=== PATIENT | female | born 1965 | race Caucasian/White ===

== ENCOUNTER 2020-01-22 12:47 | Emergency (ER) | payer OTHER, SELFPAY ==
[2020-01-22 13:30] VITALS: BP 109/63; PULSE 67; RESP 16; TEMP 36.6; O2SAT 100; BMI 22.1
--- NOTE | 2020-01-22 13:33 | DI.RAD.S_ITS ---
PROCEDURE: XR HAND LT MIN 3V INDICATIONS: hand injury TECHNIQUE: 3 views of the hand(s) acquired. COMPARISON: None. FINDINGS: Bones: No displaced fractures or dislocations. Carpal bones are normally aligned. No suspicious bony lesions. Soft tissues: No suspicious soft tissue calcifications. IMPRESSION: No acute fractures of the left hand. Dictated by: Scot Amador M.D. on 01/22/2020 at 13:04 Approved by: Scot Amador M.D. on 01/22/2020 at 13:05
--- NOTE | 2020-01-22 15:33 | ED_ITS ---
HPI - Extremity Injury (Upper) <LINDA Castro - Last Filed: 01/22/20 15:37> General Chief Complaint: Extremity Injury, Upper Stated Complaint: left hand injury x1 day Time Seen by Provider: 01/22/20 14:52 Source: patient Mode of arrival: Ambulatory Limitations: no limitations History of Present Illness HPI narrative: The patient is a 54-year-old female nonsmoker denies pertinent me dical history presents with a chief complaint of left hand pain. She states she fell on her hand yesterday. She has tried to avoid a washer machine. She is left-hand dominant. Is not taking anything for pain. Complains of bruising in the area. She and her are concerned about a fracture. Came from [facility] Allergies Allergy/AdvReac Type Severity Reaction Status Date / Time Penicillins Allergy Anaphylaxis Verified 01/22/20 13:30 Review of Systems <LINDA Castro - Last Filed: 01/22/20 15:37> Review of Systems Narrative: GENERAL: Denies chills, fatigue, malaise, fever, sweats. HEENT: Denies sinus pain, ear pain, sore throat, difficulty swallowing, dizziness. RESPIRATORY: Denies dyspnea, cough, wheezing, hemoptysis, sputum. CARDIOVASCULAR: Denies chest pain, palpitations, orthopnea, edema, GASTROINTESTINAL: Denies nausea, vomiting, abdominal pain, diarrhea, constipation, melena. : Denies dysuria, frequency, incontinence, hematuria, urinary retention. MUSCULOSKELETAL: See HPI SKIN: See HPI NEUROLOGIC: Denies weakness, headache, numbness, change in speech, confusion, seizures, incoordination. PSYCHIATRIC: No concerning psychosocial issues. 12 point review of systems is negative except for those stated above Patient History <LINDA Castro - Last Filed: 01/22/20 15:37> Substance Use Type: does not use Exam <LINDA Castro - Last Filed: 01/22/20 15:37> Narrative Exam Narrative: GENERAL: This is a well-nourished, well-developed patient, in no acute distress HEAD: Atraumatic. Normocephalic. No temporal or scalp tenderness. EYES: Pupils equal round and reactive. Extraocular motions intact. No scleral icterus. No injection or drainage. ENT: Nose without bleeding, purulent drainage or septal hematoma. Airway patent. NECK: Trachea midline. No JVD or lymphadenopathy. Supple, nontender, no meningeal signs. CARDIOVASCULAR: Regular rate and rhythm RESPIRATORY: No cough. No increased respiratory effort. No accessory muscle use. EXTREMITIES: General pain to palpation left hand. See skin exam. Full range of motion noted all fingers left hand. Pain to palpation of dorsum of left wrist. No snuffbox tenderness. Full range of motion left wrist and fingers. NEURO: AOx3. SKIN: Diffuse ecchymosis noted over dorsum of left hand distal to 5th digit extending down through wrist. Initial Vital Signs Initial Vital Signs: Vital Signs Temperature 98 F 01/22/20 13:30 Pulse Rate 67 01/22/20 13:30 Respiratory Rate 16 01/22/20 13:30 Blood Pressure 109/63 01/22/20 13:30 Pulse Oximetry 100 01/22/20 13:30 <Gerardo Leo MD - Last Filed: 01/22/20 18:20> Initial Vital Signs Initial Vital Signs: Vital Signs Temperature 98 F 01/22/20 13:30 Pulse Rate 67 01/22/20 13:30 Respiratory Rate 16 01/22/20 13:30 Blood Pressure 109/63 01/22/20 13:30 Pulse Oximetry 100 01/22/20 13:30 Scores <LINDA Castro - Last Filed: 01/22/20 15:37> GCS [place] coma scale eye opening: Spontaneous Jojo coma scale verbal response: Orientated Jojo coma scale motor response: Obey commands [place] coma scale total score: 15 Course <LINDA Castro - Last Filed: 01/22/20 15:37> Orders Ordered: ED Orders 01/22/20 13:33 XR hand LT min 3V Stat Vital Signs Vital signs: Vital Signs - 8 hr 01/22/20 13:30 Temperature 98 F Pulse Rate 67 Respiratory Rate 16 Blood Pressure 109/63 Pulse Oximetry 100 <Gerardo Leo MD - Last Filed: 01/22/20 18:20> Orders Ordered: ED Orders 01/22/20 13:33 XR hand LT min 3V Stat Vital Signs Vital signs: Vital Signs - 8 hr 01/22/20 13:30 Temperature 98 F Pulse Rate 67 Respiratory Rate 16 Blood Pressure 109/63 Pulse Oximetry 100 [facility] - Extremity Injury (Upper) <SHAUNNA Castro-BC - Last Filed: 01/22/20 15:37> Imaging Data Extremity x-ray #1: Radiologist's Impression: [address] [place] [id number] XRay Report Signed Patient: Gia Coto LMR#: [id number] : 1965Acct:[id number] Age/Sex: 54 / FDate of Service: 01/22/20 Loc: ED Accession Number: [id number] Procedure: XR hand LT min 3V Ordering Provider: Gerardo Leo MD PROCEDURE: XR HAND LT MIN 3V INDICATIONS: hand injury TECHNIQUE: 3 views of the hand(s) acquired. COMPARISON: None. FINDINGS: Bones: No displaced fractures or dislocations. Carpal bones are normally aligned. No suspicious bony lesions. Soft tissues: No suspicious soft tissue calcifications. IMPRESSION: No acute fractures of the left hand. Dictated by: Scot Amador M.D. on 01/22/2020 at 13:04 Approved by: Scot Amador M.D. on 01/22/2020 at 13:05 [facility] Narrative Medical decision making narrative: The patient is a 54-year-old female who presents with a chief complaint of left hand pain. X-rays negative. She is neurovascularly intact discussed at length the possibility of an occult fracture and encouraged follow-up with primary care provider though she has no snuffbox tenderness to palpation. She is placed in a brace by nursing but walked under the department before I could check it. She states that she does not have any other injuries are no other pain her injury yesterday. Encouraged follow-up with primary care provider. Patient left prior to me checking brace as well as discharge instructions. Discharge Plan Departure Patient Disposition: Home Clinical Impression: Hand pain, left Contusion Qualifiers: Encounter type: initial encounter Contusion area: hand Laterality: left Qualified Code(s): S60.222A - Contusion of left hand, initial encounter Discharge Date/Time: 01/22/20 15:20 Referrals: Gerardo Shaffer MD [Primary Care Provider] - <Gerardo Leo MD - Last Filed: 01/22/20 18:20> Cosign ED Attending Cosignature Attestation: I was immediately available in the department for consultation. This documentation has been reviewed and I agree with assessment and plan. Supervised by Gerardo Leo MD
== END 2020-01-22 15:20 | disposition home or self-care (01) ==
PROVIDERS: Emergency Provider Nurse Practitioner Family; PCP Family Medicine
DX: S60.222A Contusion of left hand, initial encounter (principal); W19.XXXA Unspecified fall, initial encounter
CPT/HCPCS: 73130; 99283

== ENCOUNTER 2023-02-18 21:37 | Emergency (ER) | payer OTHER, SELFPAY ==
[2023-02-18 21:41] VITALS: BP 126/79; PULSE 80; O2SAT 100
[2023-02-18 21:46] VITALS: BP 126/79; PULSE 68; RESP 18; TEMP 36.6; O2SAT 100; BMI 22.3
[2023-02-18 22:00] VITALS: PULSE 69; RESP 27; O2SAT 100
[2023-02-18 22:30] VITALS: BP 111/65; PULSE 73; O2SAT 97
[2023-02-18 23:00] VITALS: PULSE 72; RESP 15; O2SAT 99
--- NOTE | 2023-02-18 23:08 | PC.NURSE ---
Pt has been offered Zofran and declined, one attempt to start IV, pt rolled arm and movements made iv start difficult, she asked iv not be done. Pt taking oral hydration per her request, pt states that she does not want to be here, that she is here because of her .
[2023-02-18 23:30] VITALS: BP 106/68; PULSE 79; RESP 20; O2SAT 100
[2023-02-18 23:34] LABS: Alanine Aminotransferase 21 IU/L (<35); Albumin 4.4 g/dL (3.5-5.0); Albumin Globulin Ratio 1.6 (1.0-2.8); Alkaline Phosphatase 35 U/L (38-126); Aspartate Aminotransferase 22 IU/L (14-36); BUN Creatinine Ratio 14.5 (6-22); Bilirubin Total 0.4 mg/dL (0.2-1.3); Blood Urea Nitrogen 10 mg/dL (7-17); Calcium 9.3 mg/dL (8.4-10.2); Carbon Dioxide 22 mmol/L (22-32); Chloride 107 mmol/L (98-107); Estimated Glomerular Filt Rate > 60 mL/min (>60); Globulin 2.8 g/dL (1.7-4.1); Glucose 103 mg/dL (70-100); HEMOLYSIS < 15 (0-50); Lipase 45 U/L (23-300); Potassium 3.7 mmol/L (3.4-5.1); Sodium 139 mmol/L (137-145); Total Protein 7.2 g/dL (6.3-8.2)
[2023-02-18 23:51] LABS: Add Manual Diff / Slide Review NO; Basophils Absolute Auto 100 /uL (0-100); Basophils Percent Auto 0.8 % (0-2); Eosinophils Absolute Auto 0 /uL (0-450); Eosinophils Percent Auto 0.4 % (2-4); Hematocrit 39.1 % (36-46); Hemoglobin 12.9 g/dL (12.0-16.0); Lymphocytes Absolute Auto 1600 /uL (1100-4500); Lymphocytes Percent Auto 14.6 % (25-40); Mean Corpuscular HGB Conc 32.9 % (30-36); Mean Corpuscular Volume 85.1 fL (80-100); Monocytes Absolute Auto 500 /uL (0-900); Monocytes Percent Auto 4.5 % (3-14); Neutrophils Absolute Auto 8400 /uL (1500-7000); Neutrophils Percent Auto 79.7 % (50-75); Platelet Count 247 X10^3/uL (150-400); Red Blood Cell Count 4.59 X10^6/uL (4.0-5.2); Red Cell Distribution Width 13.2 % (11.6-14.8); White Blood Cell Count 10.6 X10^3/uL (4.5-11.0)
[2023-02-19] VITALS: BP 129/81; PULSE 72; RESP 18; O2SAT 97
[2023-02-19 00:30] VITALS: BP 106/63; PULSE 75; RESP 33; O2SAT 96
[2023-02-19 01:00] VITALS: BP 122/66; PULSE 81; RESP 22; O2SAT 95
[2023-02-19 01:30] VITALS: BP 117/67; PULSE 89; RESP 21; O2SAT 96
--- NOTE | 2023-02-19 01:40 | ED_ITS ---
HPI - Allergic Reaction General Chief complaint: Allergic Reaction Stated complaint: Abd pain, NV, allergic reaction Time Seen by Provider: 02/19/23 01:40 Source: patient and EMS Mode of arrival: EMS History of Present Illness HPI narrative: Patient is a 57-year-old female with multiple allergic reactions, alcohol use presenting today is possible allergic reaction. She reports that she got started on naproxen for shoulder pain she had 2 beers in a glass of wine and took a naproxen. She then reports that she had severe abdominal pain was doubled over vomiting even had a hard time breathing. Has been reports that she was not acting normal. No tongue swelling lip swelling or cyanosis. She has no urticaria or other sign rash. After IV fluids she is overall feeling significantly better. She reports that she is had multiple allergies and allergic reactions in the past all kind of very. Related Data Home Medications Medication Instructions Recorded Confirmed amitriptyline 50 mg tablet 50 mg PO DAILY 03/19/21 02/18/23 Previous Rx's Medication Instructions Recorded naproxen 500 mg tablet 500 mg PO BID PRN pain #30 tabs 02/18/23 Allergies Allergy/AdvReac Type Severity Reaction Status Date / Time clarithromycin [From Biaxin] Allergy Unknown Verified 02/18/23 10:19 Penicillins Allergy Anaphylaxis Verified 02/18/23 10:19 Review of Systems Review of Systems ROS Unobtainable: All systems reviewed & are unremarkable except as noted in HPI and below Patient History Social History Smoking Status: Never smoker Smoking Status: Never smoker Substance Use Type: does not use Exam Initial Vital Signs Initial Vital Signs: Vital Signs Pulse Rate 80 02/18/23 21:41 Blood Pressure 126/79 02/18/23 21:41 Pulse Oximetry 100 02/18/23 21:41 GENERAL: Patient 57-year-old female appears much better and in no acute distress. HEENT: Head atraumatic,EOMI, pupils reactive, face symmetric, moist mucous membranes CARDIOVASCULAR: Regular rate and rhythm without murmurs, rubs or gallops. RESPIRATORY: Breath sounds equal bilaterally, no wheezes rales or rhonchi. ABDOMEN: Soft, nontender. Normoactive bowel sounds all 4 quadrants. No guarding or rebound. EXTREMITIES: Normal range of motion, no clubbing or edema. Neurovascularly intact NEUROLOGICAL: Alert and oriented x4 SKIN: Warm, dry, no laceration, no petechiae, no rashes or lesions. Course Orders Ordered: ED Orders 02/18/23 23:15 Complete Blood Count AUTO DIFF Stat Comprehensive Metabolic Panel Stat Lipase Stat 02/19/23 01:49 ETOH [Ethanol (ETOH)] Stat Discontinued Medications Sodium Chloride (Normal Saline 0.9%) 1,000 mls @ 1,000 mls/hr IV BOLUS ONE Stop: 02/18/23 23:39 Last Admin: 02/18/23 23:10 Dose: Not Given Documented By: MEME Ondansetron HCl (Ondansetron 4 Mg Odt) 4 mg PO NOW PRN PRN Reason: Nausea And Vomiting Ondansetron HCl (Ondansetron 4 Mg/2 Ml Inj) 4 mg IV NOW PRN PRN Reason: Nausea And Vomiting Vital Signs Vital signs: Vital Signs - 8 hr 02/18/23 21:46 02/18/23 21:41 02/18/23 21:41 Temperature 97.9 F Pulse Rate 68 80 Respiratory Rate 18 Blood Pressure 126/79 126/79 Pulse Oximetry 100 100 Oxygen Delivery Method Room Air 02/18/23 22:00 02/18/23 22:30 02/18/23 22:30 Temperature Pulse Rate 69 73 Respiratory Rate 27 H Blood Pressure 111/65 Pulse Oximetry 100 97 Oxygen Delivery Method 02/18/23 23:00 02/18/23 23:30 02/18/23 23:30 Temperature Pulse Rate 72 79 Respiratory Rate 15 20 Blood Pressure 106/68 Pulse Oximetry 99 100 Oxygen Delivery Method 02/19/23 00:00 02/19/23 00:00 02/19/23 00:30 Temperature Pulse Rate 72 Respiratory Rate 18 Blood Pressure 129/81 106/63 Pulse Oximetry 97 Oxygen Delivery Method 02/19/23 00:30 02/19/23 01:00 02/19/23 01:00 Temperature Pulse Rate 75 81 Respiratory Rate 33 H 22 Blood Pressure 122/66 Pulse Oximetry 96 95 Oxygen Delivery Method 02/19/23 01:30 02/19/23 01:30 Temperature Pulse Rate 89 Respiratory Rate 21 Blood Pressure 117/67 Pulse Oximetry 96 Oxygen Delivery Method MDM - Allergic Reaction Lab Data 02/18/23 23:15 02/18/23 23:15 Labs: Lab Results 02/18/23 02/18/23 02/18/23 Range/Units 23:15 23:15 23:15 WBC 10.6 (4.5-11.0) X10^3/uL RBC 4.59 (4.0-5.2) X10^6/uL Hgb 12.9 (12.0-16.0) g/dL Hct 39.1 (36-46) % MCV 85.1 (80-100) fL MCH 28.0 (26-34) PG MCHC 32.9 (30-36) % RDW 13.2 (11.6-14.8) % Plt Count 247 (150-400) X10^3/uL Neut % (Auto) 79.7 H (50-75) % Lymph % (Auto) 14.6 L (25-40) % [place] % (Auto) 4.5 (3-14) % Eos % (Auto) 0.4 L (2-4) % Baso % (Auto) 0.8 (0-2) % Neut # (Auto) 8400 H (1118-1648) /uL Lymph # (Auto) 1600 (3096-0048) /uL [place] # (Auto) 500 (0-900) /uL Eos # (Auto) 0 (0-450) /uL Baso # (Auto) 100 (0-100) /uL Sodium 139 (137-145) mmol/L Potassium 3.7 (3.4-5.1) mmol/L Chloride 107 (98-107) mmol/L Carbon Dioxide 22 (22-32) mmol/L BUN 10 (7-17) mg/dL Creatinine 0.69 (0.52-1.04) mg/dL Estimated GFR > 60 (>60) mL/min BUN/Creatinine Ratio 14.5 (6-22) Glucose 103 H (70-100) mg/dL Calcium 9.3 (8.4-10.2) mg/dL Total Bilirubin 0.4 (0.2-1.3) mg/dL AST 22 (14-36) IU/L ALT 21 (<35) IU/L Alkaline Phosphatase 35 L (38-126) U/L Total Protein 7.2 (6.3-8.2) g/dL Albumin 4.4 (3.5-5.0) g/dL Globulin 2.8 (1.7-4.1) g/dL Albumin/Globulin Ratio 1.6 (1.0-2.8) Lipase 45 (23-300) U/L Ethyl Alcohol 140 H ( - 10) mg/dL MDM Narrative Medical decision making narrative: 57-year-old female presenting to the abdominal pain nausea vomiting. Not convinced that what she had is a allergic reaction although still possible. Blood work is overall reassuring alcohol level is 140. Have any other signs of anaphylaxis or allergic reaction sudden onset of pain vomiting after alcohol. It may or may not be related. Recommend further treatment outside the ED, she is overall feeling better no need for admission. Discharge Plan Departure Patient Disposition: Home Clinical Impression: Abdominal pain Instructions: DI for Abdominal Pain-Adult Activity Restrictions/Additional Instructions: *You have been diagnosed with abdominal pain *What to do: At this time he may have had a reaction to the naproxen. I would hold off taking it again and definitely would not mix it with alcohol if you should choose to try it again *Continue to take medications as directed *Follow up with your primary care provider in 2-3 days or call [phone] *Return to ER if you should have any new, worsening or concerning symptoms Prescriptions: No Action amitriptyline 50 mg tablet 50 mg PO DAILY naproxen 500 mg tablet 500 mg PO BID PRN (Reason: pain) Qty: 30 0RF Referrals: April Briggs PA-C [Primary Care Provider] - Stand Alone Forms: Patient Portal/API
[2023-02-19 02:09] LABS: Ethanol (ETOH) 140 mg/dL
== END 2023-02-19 02:05 | disposition home or self-care (01) ==
PROVIDERS: Emergency Provider Emergency Medicine; PCP Physician Assistant
DX: R10.9 Unspecified abdominal pain (principal); R11.2 Nausea with vomiting, unspecified
CPT/HCPCS: 36415; 80053; 80320; 83690; 85025; 99281; 99283

== ENCOUNTER → 2023-05-08 14:58 | Outpatient (CLI) | payer OTHER, SELFPAY ==
--- NOTE | 2023-05-08 | DI.MRI.S_ITS ---
PROCEDURE: MR SHOULDER RT WO CON INDICATIONS: Adhesive capsulitis of right shoulder TECHNIQUE: Noncontrast oblique coronal T2 fast spin echo with fat saturation, oblique sagittal T1 spin echo and T2 fast spin echo with fat saturation, axial T1 spin echo and T2 fast spin echo with fat saturation through the shoulder. COMPARISON: None. FINDINGS: Image quality: Excellent. Rotator cuff: Low-grade bursal surface partial thickness tear involving distal supraspinatus at its insertion on the humeral head is seen extending to musculotendinous junction. Distal infraspinatus and subscapularis tendinosis is noted. No full-thickness rotator cuff tendon rupture. Sagittal images demonstrate very mild supraspinatus muscle atrophy. Bones and bursae: No bone marrow contusions or fractures. Moderate acromioclavicular joint osteoarthritic changes are seen with joint space narrowing and downward osteophyte formation depressing the musculotendinous junction of supraspinatus. The acromion demonstrates conventional anatomy, without an os acromiale. Small to moderate amount of subacromial subdeltoid bursal fluid is seen. Capsule and soft tissues: Signal abnormality and contour irregularity involving superior anterior labrum at 12-1 o'clock position is seen suggestive of subtle superior anterior labral tear. Similar signal abnormality in anterior inferior labrum is also seen at approximately 4 to 5 o'clock position. The long head of the biceps tendon demonstrates normal location and morphology. The rotator interval appears normal, without fibrosis. The coracohumeral ligament is normal in thickness. IMPRESSION: 1. Low-grade bursal surface partial thickness tear involving distal supraspinatus extending to musculotendinous junction. Distal infraspinatus and subscapularis tendinosis. No full-thickness rotator cuff tendon rupture. Very mild supraspinatus muscle atrophy. 2. Moderate acromioclavicular joint osteoarthritis. No fracture or dislocation. Small to moderate amount of subacromial subdeltoid bursal fluid. No loose bodies. 3. Finding is concerning for subtle superior anterior labral tear at 12-1 o'clock position and anterior-inferior labral tear at 4 to 5 o'clock position. Dictated by: Bjorn Thakur M.D. on 05/11/2023 at 11:00 Approved by: Bjorn Thakur M.D. on 05/11/2023 at 11:24
== END ==
PROVIDERS: PCP Family Medicine; Referring Provider Orthopaedic Surgery; Visit Provider Orthopaedic Surgery
DX: M75.01 Adhesive capsulitis of right shoulder (principal); M75.111 Incomplete rotator cuff tear or rupture of right shoulder, not specified as traumatic; M19.011 Primary osteoarthritis, right shoulder
CPT/HCPCS: 73221